=== PATIENT | female | born 1980 | race African-American/Black ===

== ENCOUNTER 2022-06-19 12:30 | Emergency (ER) | payer BC, SELFPAY ==
[2022-06-19 12:48] VITALS: BP 135/78; PULSE 88; RESP 18; TEMP 36.8; O2SAT 100
--- NOTE | 2022-06-19 13:36 | ED.NAVMDI ---
HPI - Nausea/Vomiting/Diarrhea General Chief complaint: Nausea/Vomiting/Diarrhea Stated complaint: Body Aches,Headache,Vomiting,Diarrhea Time Seen by Provider: 06/19/22 12:39 Source: patient Mode of arrival: ambulatory Limitations: no limitations History of Present Illness HPI Narrative: 42-year-old female presents to [facility] complaints of nausea, vomiting diarrhea, chills and headache for the past 3 days. Patient reports that her symptoms have improved but she wanted to ensure that she does not have COVID as she is wanting to go to a show tonight. Patient reports that she has ususally does not test positive for COVID on nasal swabs. Patient denies sore throat, runny nose, nasal congestion, shortness of breath or wheezing. MD elicited complaint: nausea, vomiting and diarrhea Onset (ago): day(s) (3) Associated nausea: Yes Associated abdominal pain: No Associated symptoms: denies other symptoms Related Data Home Medications Medication Instructions Recorded Confirmed losartan 100 1 tablet PO DAILY 06/19/22 06/19/22 mg-hydrochlorothiazide 25 mg tablet Allergies Allergy/AdvReac Type Severity Reaction Status Date / Time No Known Allergies Allergy Verified 06/19/22 12:52 Review of Systems Constitutional: Constitutional: Denies chills, Denies fatigue, Denies fever(s) and Denies weakness ENT: Denies vertigo, Denies dizziness, Denies nasal congestion and Denies sore throat Gastrointestinal: Gastrointestinal: Denies abdominal pain, Reports diarrhea, Reports nausea and Reports vomiting Integumentary/Breasts: Skin/Breast: Denies rash PMFSH Comments At time of signature, I agree with nursing past medical, surgical, social and family history. There is no relevant family history pertinent to the presenting complaint. Exam Const: General: healthy appearing and no acute distress Nutritional Appearance: well nourished Orientation/consciousness: patient oriented x3 Limitations: no limitations HENMT: Head: normal to inspection Throat: posterior oropharynx normal and uvula midline Eyes: Conjunctivae: conjunctivae normal Neck: Neck: normal visual inspection Resp: Effort & Inspection: normal respiratory effort and not labored Auscultation: clear to auscultation bilaterally, no crackles, no rales, no rhonchi and no wheezes Cardio: Rate: regular rate Rhythm: regular rhythm Heart sounds: no murmurs Skin: General skin exam: normal color Rashes: no rashes Wounds: no wounds Neuro: General: patient oriented x3 Speech: normal speech Gait exam (Neuro): Normal gait present Psych: Affect: normal affect Attitude: cooperative Course Course Level of Care: Express Care Visit Vital Signs Vital signs: Vital Signs Temperature 36.8 C 06/19/22 12:48 Pulse Rate 88 06/19/22 12:48 Respiratory Rate 18 06/19/22 12:48 Blood Pressure 135/78 06/19/22 12:48 Pulse Oximetry 100 06/19/22 12:48 Oxygen Delivery Room Air 06/19/22 12:48 Temperature 36.8 C 06/19/22 12:48 Pulse Rate 88 06/19/22 12:48 Respiratory Rate 18 06/19/22 12:48 Blood Pressure 135/78 06/19/22 12:48 Pulse Oximetry 100 06/19/22 12:48 Oxygen Delivery Room Air 06/19/22 12:48 MDM - Nausea/Vomiting/Diarrhea MDM Narrative Medical decision making narrative: Inform patient she tests negative for influenza and COVID. Patient is requesting PCR COVID test. Patient understands that she is to self quarantine pending PCR results. Work excuse provided for patient. Differential Diagnosis Differential diagnosis: Likely traveler's diarrhea, gastroenteritis and other (Influenza, COVID) Lab Data Labs: Influenza A Screen Negative Reference Range: Negative Influenza B Screen Negative Reference Range: Negative Negative rapid COVID test Critical Care Time Critical Care Time Critical Care Time: No D
[2022-06-19 18:46] LABS: Influenza A QL RT-PCR Negative (Negative); Influenza B QL RT-PCR Negative (Negative); RSV RNA, RT-PCR Negative (Negative); SARS-CoV-2 RNA PCR Negative
== END 2022-06-19 13:49 | disposition home or self-care (01) ==
PROVIDERS: Emergency Provider Nurse Practitioner Family
DX: B34.9 Viral infection, unspecified (principal); Z20.822 Contact with and (suspected) exposure to COVID-19
CPT/HCPCS: 87426; 87637; 87804; 99203; C9803; G0463

== ENCOUNTER 2023-03-21 18:28 | Emergency (ER) | payer BC, SELFPAY ==
--- NOTE | 2023-03-21 18:36 | ED.EXTPRO ---
HPI - Extremity Problem General Chief complaint: Extremity Problem,Nontraumatic Stated complaint: rt arm numbness Time Seen by Provider: 03/21/23 18:36 Source: patient Mode of arrival: ambulatory Limitations: no limitations History of Present Illness HPI Narrative: Paula is a 43-year-old female patient presenting to the clinic today with complaints of right arm numbness/tingling x 1 day, headache, nausea, dizziness, and cramping. She reports no shortness of breath or chest pain. Denies any dizziness or visual changes. Patient is tachycardic at the time of exam. Patient is hypertensive. Did take her hypertensive medications today. States she is under a lot of stress at work and at home. Has had COVID exposure. Related Data Home Medications Medication Instructions Recorded Confirmed losartan 100 1 tablet PO DAILY 06/19/22 03/21/23 mg-hydrochlorothiazide 25 mg tablet semaglutide (weight loss) 2.4 2.4 mg subcut WEEKLY 03/21/23 03/21/23 mg/0.75 mL subcutaneous pen injector (Wegovy) Allergies Allergy/AdvReac Type Severity Reaction Status Date / Time No Known Allergies Allergy Verified 03/21/23 18:34 Review of Systems Review of Systems: Pertinent positives per HPI. Patient denies any fever, chills, rash,visual changes, cough, runny nose, sore throat, shortness of breath, chest pain, palpitations,vomiting, diarrhea, constipation, abdominal pain, or any urinary issues. PMFSH Comments At the time of my signature, I reviewed and agree with the nursing past medical, surgical, social, and family history. There is no relevant family history pertinent to the patient complaint. Exam Narrative: General: Well-developed, well nourished, in no apparent distress Head: Normocephalic, atraumatic Eyes: Pupils equally round and reactive to light bilaterally, EOM intact, sclera and conjunctive clear, no discharge, lids normal Ears: TMs intact and clear, ear canals clear, no drainage, grossly hearing normal. Nose: Nares patent, no discharge, no inflammation, no sinus tenderness. Mouth: Oropharynx without lesions or masses, good dentition, MMM. Neck: Supple, trachea midline, no enlargement of anterior or posterior cervical nodes, no thyroid masses or goiter palpable Cardio: Tachycardic, regular rate and rhythm, s1 and s2 normal, no murmur appreciated. Resp: Clear to auscultation bilaterally, no rhonchi, rales, wheezing or rubs. Musculoskeletal: No deformity, tender to palpation over trapezius muscular on the right as well as over the posterior shoulder, with numbness and tingling going down her arm, grossly normal range of motion, muscle strength strong and equal, bilateral equal hand grasp, peripheral pulse strong, no edema, no cyanosis, normal gait and station Course Course Emergency Course: Portions of this record may have been created with voice recognition software. Level of Care: Express Care Visit Vital Signs Vital signs: Vital signs reviewed MDM - Extremity (Nontraumatic) MDM Narrative Medical decision making narrative: At the time of visit patient is resting comfortably on exam table. EKG shows sinus tachycardia with her heart rate of 101 beats per minute with a nonspecific T-wave abnormality. No other ectopy/ST-elevation or depression noted. Recommend transfer to the ER for further workup for labs. Patient chose to go to [facility]. Contacted [facility] and spoke to Marlen HERNÁNDEZ and report was given for continuity of care and she accepts patient for transfer. Differential Diagnosis Differential diagnosis: Likely other (Stress related illness, hypertension, electrolyte imbalance, nerve entrapment) ECG Data EKG #1: Attestation EKG: I personally reviewed and interpreted this ECG as follows: ECG completion date: 03/21/23 ECG completion time: 18:57 Prior ECG tracings: not available for review Interpretation: EKG shows sinus tachycardia with heart rate of 101 beats per
[2023-03-21 18:43] VITALS: BP 151/96; PULSE 110; RESP 18; TEMP 36.8; O2SAT 100
--- NOTE | 2023-03-21 19:10 | ECG_ITS ---
Measurements Intervals [place] Rate: 97 P: 53 TX: 158 QRS: -7 QRSD: 81 T: 52 QT: 320 QTc: 408 Interpretive Statements SINUS RHYTHM POOR R WAVE PROGRESSION NO PREVIOUS ECG AVAILABLE FOR COMPARISON Electronically Signed On 03-21-2023 20:07:50 CDT by Janelle Miles M.D.
== END 2023-03-21 19:05 | disposition short-term general hospital (02) ==
PROVIDERS: Emergency Provider Nurse Practitioner Family
DX: R20.0 Anesthesia of skin (principal); R25.2 Cramp and spasm; I10 Essential (primary) hypertension; R51.9 Headache, unspecified; R11.0 Nausea; R42 Dizziness and giddiness; Z20.822 Contact with and (suspected) exposure to COVID-19
CPT/HCPCS: 87426; 93005; 99212; C9803; G0463

== ENCOUNTER 2023-03-21 19:23 | Emergency (ER) | payer BC, SELFPAY ==
--- NOTE | ~2023-03-21 | CT_ITS ---
Non-contrast Head CT History: Right arm numbness Technique: Axial non-contrast imaging of the brain was performed. Dose reduction technique was used on this scan by utilizing automated exposure control and iterative reconstruction technique. The dose -length product (DLP) was 605.33 mGy-cm. Findings: There is no evidence of intracranial hemorrhage, mass lesion, or acute infarct. Brain par enchyma appears normal. The ventricles and subarachnoid spaces are normal in size. The calvarium ap pears normal. The visualized paranasal sinuses and mastoid air cells are clear. Impression: No significant abnormality seen. Reviewed, dictated and finalized at location . Impression: No significant abnormality seen.
--- NOTE | ~2023-03-21 | XR_ITS ---
EXAMINATION: XR chest 2V DATE: 03/21/2023 19:56 INDICATION: Chest pain. TECHNIQUE: Frontal and lateral views of the chest were obtained. COMPARISON: None. FINDINGS: There is no pneumonia, pleural effusion, or pneumothorax. The heart size is normal. IMPRESSION: 1. No acute cardiopulmonary disease. Reviewed, dictated and finalized at location E.
--- NOTE | 2023-03-21 19:25 | ECG_ITS ---
Measurements Intervals [place] Rate: 101 P: 52 MI: 158 QRS: 0 QRSD: 85 T: 69 QT: 317 QTc: 413 Interpretive Statements SINUS TACHYCARDIA NONSPECIFIC T-WAVE ABNORMALITY ABNORMAL RHYTHM ECG NO PREVIOUS ECG AVAILABLE FOR COMPARISON Electronically Signed On 03-22-2023 11:17:44 CDT by Janelle Miles M.D.
[2023-03-21 19:34] VITALS: BP 120/87; PULSE 90; RESP 17; TEMP 37.4; O2SAT 100
[2023-03-21 19:51] LABS: Basophils Percent Auto 0.4 % (0.2-1.2); Eosinophils Absolute Auto 0.1 K/mm3 (0-0.3); Eosinophils Percent Auto 1.3 % (0-4.4); Hematocrit 31.1 % (37.0-47.0); Immature Granulocyte Absolute 0.03 K/mm3 (0.00-0.031); Immature Granulocyte Percent A 0.4 % (0-0.5); Lymphocytes Absolute Auto 2.03 K/mm3 (0.9-3.2); Lymphocytes Percent Auto 29.5 % (18.3-44.2); Mean Corpuscular HGB Conc 28.9 g/dl (32-36); Mean Corpuscular Hemoglobin 21.3 pg (26-34); Mean Corpuscular Volume 73.5 fl (80-100); Mean Platelet Volume 9.5 fl (7.4-10.4); Monocytes Absolute Auto 0.4 K/mm3 (0.1-0.6); Monocytes Percent Auto 6.1 % (2.6-8.5); Neutrophils Absolute Auto 4.3 K/mm3 (1.3-6.7); Neutrophils Percent Auto 62.3 % (45.5-73.1); Platelet Count Result 356 k/mm3 (150-375); Red Blood Count 4.23 M/mm3 (4.2-5.4); Red Cell Distribution Width 20.2 % (11.5-14.5); White Blood Count 6.9 K/mm3 (4.5-10.0)
[2023-03-21 20:01] LABS: Alanine Aminotransferase 13 U/L (6-35); Albumin Level 4.9 g/dL (3.5-5.1); Alkaline Phosphatase 52 U/L (38-126); Anion Gap 10 mmol/L (8-16); Aspartate Amino Transferase 20 U/L (14-36); Bilirubin,Total 0.3 mg/dL (0.2-1.3); Blood Urea Nitrogen 11 mg/dL (7-17); Calcium 9.7 mg/dL (8.4-10.2); Carbon Dioxide 25 mmol/L (22-30); Chloride 104 mmol/L (98-107); Estimated CRCL calculation 92 ml/min; Estimated Glomerular Filt Rate > 60; Glucose 112 mg/dL (65-110); Lipase 192 U/L (23-300); Potassium 3.4 mmol/L (3.4-5.0); Sodium 139 mmol/L (137-145)
[2023-03-21 20:12] LABS: Troponin I < 0.012 ng/mL (0.000-0.034)
[2023-03-21 20:16] LABS: Prothrombin Time 13.3 Seconds (11.1-14.7)
[2023-03-21 20:27] LABS: Anisocytosis 1+ (NORMAL); Hypochromasia 2+ (NORMAL); Platelet Estimate Adequate (Adequate); Poikilocytosis 1+ (NORMAL); Schistocytes Rare (NORMAL); Target Cells 1+ (NORMAL)
[2023-03-21 23:36] VITALS: O2SAT 100
[2023-03-21 23:38] VITALS: BP 123/82; PULSE 81; RESP 19; O2SAT 100
[2023-03-22 00:20] LABS: Troponin I < 0.012 ng/mL (0.000-0.034)
[2023-03-22 01:23] VITALS: BP 143/95; PULSE 91; RESP 22; O2SAT 100
[2023-03-22 01:28] VITALS: BP 138/95; PULSE 89; RESP 20; O2SAT 100
[2023-03-22 02:06] LABS: Troponin I < 0.012 ng/mL (0.000-0.034)
[2023-03-22 02:17] VITALS: BP 130/94; PULSE 84; RESP 27; O2SAT 98
[2023-03-22 02:47] VITALS: BP 127/79; PULSE 82; RESP 20; O2SAT 99
--- NOTE | 2023-03-22 03:05 | ED.GENADULT ---
HPI - General Adult General Chief complaint: Chest Pain Stated complaint: chest pain Time Seen by Provider: 03/21/23 23:54 History of Present Illness HPI narrative: Patient is a 43-year-old female who presents the emergency department with chief complaint of back neck right arm and also discomfort in the right arm and numbness. 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 reports no other focal deficits reports no facial droop denies shortness of breath Related Data Home Medications Medication Instructions Recorded Confirmed losartan 100 1 tablet PO DAILY 06/19/22 03/21/23 mg-hydrochlorothiazide 25 mg tablet semaglutide (weight loss) 2.4 2.4 mg subcut WEEKLY 03/21/23 03/21/23 mg/0.75 mL subcutaneous pen injector (Wegovy) Allergies Allergy/AdvReac Type Severity Reaction Status Date / Time No Known Allergies Allergy Verified 03/21/23 18:34 Review of Systems Review of Systems: A 10 system review of systems was completed on the patient and is negative except for what is stated in the HPI. Nursing and ancillary documentation was reviewed. Exam Narrative: GENERAL: Well-appearing, well-nourished, and in no acute distress. HEAD: Normocephalic, atraumatic. EYES: PERRLA and EOMI. ENT: Nares clear, no rhinorrhea or epistaxis. Mucous membranes moist. NECK: Supple. CHEST: Clear to auscultation. No respiratory distress. HEART: Regular rate and rhythm. No murmur heard. Normal peripheral pulses. ABDOMEN: Soft, nontender, nondistended, normal active bowel sounds. EXTREMITIES: Normal range of motion. No edema. SKIN: Warm, dry, no rash. NEURO: No focal deficits. Alert and oriented x3. 5 out of 5 strength in all extremities NIH is 0 PSYCH: Normal mood and affect. Course Vital Signs Vital signs: Vital Signs Temperature 37.4 C 03/21/23 19:34 Pulse Rate 90 03/21/23 19:34 Respiratory Rate 17 03/21/23 19:34 Blood Pressure 120/87 03/21/23 19:34 Pulse Oximetry 100 03/21/23 19:34 Oxygen Delivery Room Air 03/21/23 19:34 Temperature 37.4 C 03/21/23 19:34 Pulse Rate 82 10/25/23 02:47 Respiratory Rate 20 03/22/23 02:47 Blood Pressure 127/79 03/22/23 02:47 Pulse Oximetry 99 03/22/23 02:47 Oxygen Delivery Room Air 03/21/23 23:36 Medical Decision Making MDM Narrative Medical decision making narrative: Differential diagnosis includes CVA, ACS, musculoskeletal pain, Patient had 3 negative troponins in the emergency department electrolytes and CBC were within normal EKG showed no acute ischemic changes Patient with finding Head showed no acute abnormality Vital Signs Vital Signs: Vital Signs Temperature 37.4 C 03/21/23 19:34 Pulse Rate 90 03/21/23 19:34 Respiratory Rate 17 03/21/23 19:34 Blood Pressure 120/87 03/21/23 19:34 Pulse Oximetry 100 03/21/23 19:34 Oxygen Delivery Room Air 03/21/23 19:34 Temperature 37.4 C 03/21/23 19:34 Pulse Rate 82 03/22/23 02:47 Respiratory Rate 20 03/22/23 02:47 Blood Pressure 127/79 03/22/23 02:47 Pulse Oximetry 99 03/22/23 02:47 Oxygen Delivery Room Air 03/21/23 23:36 Lab Data 03/21/23 19:44 03/21/23 19:44 Labs: Lab Results 03/21/23 03/21/23 03/22/23 Range/Units 19:44 23:47 01:27 WBC 6.9 (4.5-10.0) K/mm3 RBC 4.23 (4.2-5.4) M/mm3 Hgb 9.0 L (12.0-15.0) g/dL Hct 31.1 L (37.0-47.0) % MCV 73.5 L (80-100) fl MCH 21.3 L (26-34) pg MCHC 28.9 L (32-36) g/dl RDW 20.2 H (11.5-14.5) % Plt Count 356 (150-375) k/mm3 MPV 9.5 (7.4-10.4) fl Immature Gran % (Auto) 0.4 (0-0.5) % Neut % (Auto) 62.3 (45.5-73.1) % Lymph % (Auto) 29.5 (18.3-44.2) % [place] % (Auto) 6.1 (2.6-8.5) % Eos % (Auto) 1.3 (0-4.4) % Baso % (Auto) 0.4 (0.2-1.2) % Lymp
[2023-03-22 03:17] VITALS: BP 124/78; PULSE 86; RESP 19; O2SAT 100
== END 2023-03-22 03:19 | disposition home or self-care (01) ==
PROVIDERS: Emergency Provider Emergency Medicine
DX: R07.89 Other chest pain (principal); M54.9 Dorsalgia, unspecified; R20.2 Paresthesia of skin
CPT/HCPCS: 36415; 70450; 71046; 80053; 83690; 84484; 85025; 85610; 85730; 87426; 93005; 99284; C9803